=== PATIENT | female | born 1995 | race Caucasian/White ===

== ENCOUNTER 2016-10-05 15:40 | Emergency (ER) | payer OTHER ==
[~2016-10-05 15:40] MED LIST: ADDERALL20 M1 PO; ALBUTEROL17 GM INH; BENZONATATE PO; EFFEXOR75 M3 PO; FLAGYL PO; METAMUCIL PACKE1 PK1; NO MEDICATIONS; PROPRANOLOL HCL20 MG PO; RISPERDAL1 M1 PO; SEROQUEL PO; SOMA PO; VENLAFAXINE HC150 M1 PO; VISTARIL PO; VYVANSE40 MG PO; ZYRTEC10 M2 PO
[2016-10-05] MEDS ORDERED: ZOLOFT (15:46)
[2016-10-05] MEDS ORDERED: REXULTI2 MG (15:46)
[2016-10-05] MEDS ORDERED: ADDERALL (15:46)
== END 2016-10-05 18:25 | disposition home or self-care (01) ==
LOC: SED 15:40
DX: J02.9 Acute pharyngitis, unspecified (principal); B00.1 Herpesviral vesicular dermatitis; F17.200 Nicotine dependence, unspecified, uncomplicated
CPT/HCPCS: 87651; 99283

== ENCOUNTER 2016-10-29 15:31 | Emergency (ER) | payer OTHER ==
[~2016-10-29 15:31] MED LIST changes: +ADDERALL; +REXULTI2 MG; +ZOLOFT
[2016-10-29 15:47] LABS: URINE SOURCE CLEAN CATCH
[2016-10-29 15:50] LABS: URINE APPEARANCE CLEAR; URINE BILIRUBIN NEG (NEG); URINE BLOOD NEG (NEG); URINE COLOR YELLOW; URINE GLUCOSE NEG (NORM); URINE KETONE NEG (NEG); URINE LEUKOCYTE ESTERASE TRACE (NEG); URINE NITRATE NEG (NEG); URINE PROTEIN NEG (NEG); URINE SPECIFIC GRAVITY 1.015 (1.003-1.035); URINE UROBILINOGEN 0.2 MG/DL (NORM)
[2016-10-29 15:58] LABS: CULTURE INDICATED? NO; MICRO INDICATED? YES; URINE BACTERIA NEG (NEG); URINE MUCUS PRESENT; URINE RBC NEG /[HPF] (0-2); URINE SQUAMOUS EPITHELIAL CELL MANY /[HPF]
== END 2016-10-29 16:13 | disposition home or self-care (01) ==
LOC: SED 15:31
PROVIDERS: Physician Assistant Medical
DX: M54.42 Lumbago with sciatica, left side (principal)
CPT/HCPCS: 81003; 84703; 99283

== ENCOUNTER 2016-11-11 22:44 | Emergency (ER) | payer OTHER ==
[~2016-11-11] VITALS: Ht 152.4 cm; Wt 61.2 kg
--- NOTE | ~2016-11-11 | CR63 ---
[facility] [place] A Service of [facility] RADIOLOGY TEXT RESULTS PATIENT: ASHWINI MCWILLIAMS LOCATION: SED : 95 UNIT #: [id number] AGE: [address]: Loretta Good SEX: F ORDER DR: [id number] [address] [address] [id number] E MR#: [id number] Acc #: [id number] NAME: ASHWINI MCWILLIAMS : 1995 SEX: F STUDY DATE/TIME: 11/12/2016 0:45 UNIT: SED ROOM: STUDY DESCRIPTION: CR Chest 2 View Attending Physician: Loretta Good Pa-C Ordering Physician: Staff Doctor Not On Primary Care Physician: Souleymane Valladares M.D. MEDICAL IMAGING REPORT This report is preliminary unless electronic signature is present. EXAM Chest x-ray 11/12/2016 HISTORY 21-year-old female in the ED complaining of 2-day history of cough and shortness of air. Hemoptysis. TECHNIQUE PA and lateral upright chest series. FINDINGS Heart size and pulmonary vascularity are normal. The lungs are clear. No visible pulmonary infiltrate or pleural effusion. Thoracolumbar spinal curvature. No change since 01/05/2016. IMPRESSION Negative chest. No change since 01/05/2016. Dictated by... Nadeem Payne M.D. THIS IS AN ELECTRONICALLY VERIFIED REPORT Nadeem Payne M.D. at 11/12/2016 5:59 AM MARIA EUGENIA/candi TD: 11/12/2016 04:41 JOB #: [id number] MEDICAL IMAGING REPORT Page 1 of 1
[2016-11-11] MEDS ORDERED: ALBUTEROL17 GM (22:59)
[2016-11-11] MEDS ORDERED: LORTAB 5-325 M1 EACH (22:59)
[2016-11-11 23:58] LABS: BASOPHIL# 0.1 X10e3 (0-0.3); EOSINOPHIL# 0.1 X10e3 (0-0.7); EOSINOPHIL% 1.7 % (0.0-7.0); HEMATOCRIT 41.1 % (35.0-45.0); HEMOGLOBIN 13.8 gm/dL (12.0-16.0); LYMPHOCYTE# 1.9 X10e3 (1.0-3.5); LYMPHOCYTE% 25.8 % (17.0-45.0); MEAN CELL VOLUME 87.1 FL (83-96); MEAN CORPUSCULAR HEMOGLOBIN 29.3 PG (28-34); MEAN CORPUSCULAR HGB CONC 33.6 g/dL (30-36); MEAN PLATELET VOLUME 8.5 FL (6.5-11.5); MONOCYTE# 0.8 X10e3 (0-1.0); MONOCYTE% 11.2 % (3.0-12.0); NEUTROPHIL# 4.5 X10e3 (1.5-7.1); NEUTROPHIL% 60.3 % (40-75); PLATELET COUNT 229 X10e3 (140-420); RED BLOOD COUNT 4.72 X10e (3.90-5.30); RED CELL DISTRIBUTION WIDTH 15.2 % (11.0-15.5); WHITE BLOOD COUNT 7.5 X10e3 (4.0-10.5)
[2016-11-12] LABS: DIFF IND NO
[2016-11-12 00:01] LABS: INR 1.1; PROTHROMBIN TIME (PATIENT) 11.9 SECONDS (9.5-12.4)
[2016-11-12 00:08] LABS: ALBUMIN SERUM 4.7 g/dL (3.5-5.0); BILIRUBIN,TOTAL 0.3 mg/dL (0.2-2.0); BUN/CREATININE RATIO 12.85; CALCIUM SERUM 9.1 mg/dL (8.4-10.2); CREATININE SERUM 0.7 mg/dL (0.6-1.4); GLOM FILT RATE Estimated 123.9 mL/min (>60); PARTIAL THROMBOPLASTIN TIME 29.1 SECONDS (25.6-38.1); POTASSIUM 3.4 mmol/L (3.5-5.1); PROTEIN TOTAL SERUM 8.2 g/dL (6.0-8.3)
== END 2016-11-12 01:28 | disposition home or self-care (01) ==
LOC: SED 22:44
PROVIDERS: Physician Assistant
DX: J40 Bronchitis, not specified as acute or chronic (principal); F90.9 Attention-deficit hyperactivity disorder, unspecified type; F31.9 Bipolar disorder, unspecified; F43.10 Post-traumatic stress disorder, unspecified; F20.9 Schizophrenia, unspecified; F17.200 Nicotine dependence, unspecified, uncomplicated; Z98.890 Other specified postprocedural states; Z88.1 Allergy status to other antibiotic agents; Z91.040 Latex allergy status; Z91.018 Allergy to other foods
CPT/HCPCS: 36415; 71020; 80053; 84703; 85025; 85379; 85610; 85730; 99283

== ENCOUNTER 2016-11-20 22:14 | Emergency (ER) | payer OTHER ==
[~2016-11-20] VITALS: Ht 152.4 cm; Wt 61.2 kg
[~2016-11-20 22:14] MED LIST changes: +ALBUTEROL17 GM; +LORTAB 5-325 M1 EACH
== END 2016-11-20 23:47 | disposition home or self-care (01) ==
LOC: CED 22:14
DX: H60.12 Cellulitis of left external ear (principal); F17.210 Nicotine dependence, cigarettes, uncomplicated; F90.9 Attention-deficit hyperactivity disorder, unspecified type; J45.909 Unspecified asthma, uncomplicated; F31.9 Bipolar disorder, unspecified; F20.9 Schizophrenia, unspecified; F43.10 Post-traumatic stress disorder, unspecified; Z88.1 Allergy status to other antibiotic agents; Z91.040 Latex allergy status; Z91.018 Allergy to other foods
CPT/HCPCS: 99282

== ENCOUNTER 2016-11-28 12:56 | Inpatient (IN) | payer OTHER ==
[~2016-11-28] VITALS: Ht 152.4 cm; Wt 70.2 kg
--- NOTE | ~2016-11-28 | HP ---
Unit #: [id number] #: [id number] Patient: ASHWINI MCWILLIAMS [id number] [address] [place], [place] [address] [id number] I MR#: [id number] NAME: ASHWINI MCWILLIAMS ROOM: 36993 Age: 21 Sex: F Admission Date: 11/28/2016 : 1995 Attending Physician: Mora Patrick M.D. Primary Care Physician: Souleymane Valladares M.D. HISTORY AND PHYSICAL CHIEF COMPLAINT Unresponsiveness. HISTORY OF PRESENT ILLNESS The patient is a 21-year-old female who has a history of depression. She came because the patient was unresponsive and could not wake her up. According to the patient's mother, who is sitting by her bedside in the emergency room, she states that the patient deals with depression a lot. She was in [facility] last year when she tried to cut her wrists. She had some kind of problem with her ex-boyfriend and she took 75 tablets of Xanax and 30 tablets of Adderall. The patient was unresponsive and EMS was called and she was brought to the emergency room. The patient is being evaluated in room T6 in the emergency room. The patient is not able to provide any history at this time. Most of the history was taken from the patient's mother, who is at the bedside. Primary care provider is Souleymane Valladares. PAST MEDICAL HISTORY 1. History of depression/bipolar disorder. 2. ADHD. 3. Questionable schizophrenia. 4. History of asthma. PAST SURGICAL HISTORY History of D and C for miscarriage. SOCIAL HISTORY The patient smokes half to one pack per day. No history of alcohol abuse or drug abuse. No history of IV drug abuse. FAMILY HISTORY Not significant. ALLERGIES Nitrofurantoin, amoxicillin, latex, mushroom and onion. HOME MEDICATIONS 1. Xanax 0.5 mg t.i.d. p.r.n. 2. Adderall 30 mg daily. 3. Mobic 15 mg daily. 4. Zoloft 100 mg daily. 5. Keflex 500 mg t.i.d. 6. Ventolin inhaler q.i.d. Unit #: [id number] #: [id number] Patient: ASHWINI MCWILLIAMS REVIEW OF SYSTEMS As per history of present illness. PHYSICAL EXAMINATION GENERAL: The patient is being evaluated in room T6 in the emergency room. VITALS: Stable. Blood pressure 108/64, respiratory rate 19, pulse 67, temperature 98.2, oxygen saturation 98%. HEENT: Head is normocephalic. CHEST: Fair air entry. No additional sounds. HEART: S1 and S2 positive. Regular rhythm. ABDOMEN: Soft. No tenderness. EXTREMITIES: Negative edema. 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 Neurologic examination was limited. DIAGNOSTIC STUDIES LABORATORY: Urinalysis was done, which was normal. Urine drug screen positive for benzodiazepine. BMP shows sodium 138, potassium 4.1, chloride 108, BUN 13, creatinine 0.7. Liver enzymes are stable. ASSESSMENT The patient is being admitted to the telemetry unit with 1. Mental status changes, lethargy. 2. Drug overdose with Xanax and Adderall. 3. Suicidal. 4. History of depression. PLAN Admit to the telemetry unit. Dr. Gallo has been consulted. IV fluids, D5 normal saline at 150 an hour has been started. N.p.o. at this time. Protonix [address] Gallo will be consulted. The patient will be on 72-hour hold. Sitter is at the bedside. Home medication reconciliation has been done. Plan of care has been discussed with mother. Dictated by Princess Daniel TD: 11/28/2016 16:21 JOB #: [id number] HISTORY AND PHYSICAL Page 1 of 1 X Mora Patrick MD HISTORY AND PHYSICAL
--- NOTE | ~2016-11-28 | CO ---
Unit #: [id number] #: [id number] Patient: ASHWINI MCWILLIAMS [id number] [facility] [address] [facility]. [place], [place] [address] [id number] I MR#: [id number] NAME: ASHWINI MCWILLIAMS ROOM: 320 Age: 21 Sex: F Admission Date: 11/28/2016 : 1995 Attending Physician: Mora Patrick M.D. Primary Care Physician: Souleymane Valladares M.D. Consultation Date: 11/29/2016 CONSULTATION REPORT REASON FOR CONSULTATION Overdose. HISTORY OF PRESENT ILLNESS Ms. Busch is a 21-year-old female, seen in room 320, bed 1, on 11/29/2016 at [facility]. The patient is dressed casually, lying comfortably in bed. Somewhat sleepy. The patient has a sitter at the bedside. The patient answered question in short sentences, but reported sad, depressed, suicidal ideation. Recent suicide attempt by taking overdose. Denied any psychotic symptom. Denied any use of any drugs or alcohol. Vital signs; temperature 97.9, pulse 66, respirations 16, blood pressure 120/52, oxygen saturation 99%. The patient's urine drug screen is positive for benzodiazepine. PAST PSYCHIATRIC HISTORY Remarkable for history of depression, history of inpatient treatment at [facility], last treated on 08/20/2016 to 08/24/2016. The patient diagnosed with major depressive disorder, recurrent, severe, generalized anxiety disorder, posttraumatic stress disorder. MEDICAL HISTORY Remarkable for history of asthma. MEDICATIONS The patient is on Xanax 0.5 mg t.i.d., Adderall 30 mg daily, Mobic 15 mg daily, Zoloft 100 mg daily, Keflex 500 mg t.i.d., Ventolin inhaler. ALLERGIES Nitrofurantoin, amoxicillin, latex, mushroom, and onion. FAMILY HISTORY AND SOCIAL HISTORY The patient reported she has a good support system. No history of abuse. No history of any substance abuse. REVIEW OF SYSTEMS Complete review of systems is unremarkable. MENTAL STATUS EXAMINATION Vital signs; 97.9, 66, 16, 120/52, oxygen saturation 99%. General appearance; the patient dressed casually, lying comfortably in bed. Attention span and concentration, fair. Speech, slow in volume. Oriented in place and person. Mood and affect, sad, and depressed. Thought process, coherent. Thought content, the patient denied any homicidal ideation, but suicidal ideation, suicide attempt. Guarded and paranoid. Unit #: [id number] #: [id number] Patient: ASHWINI MCWILLIAMS Recent and remote memory, fair to slightly impaired. Language, fair. Fund of knowledge, fair. Insight and judgment, fair to slightly impaired. DIAGNOSES Psychiatric: Major depressive disorder, recurrent, severe, F33.2. Secondary diagnosis: Deferred. Medical diagnosis: Please refer to H and P. Stressors: Psychosocial stressors. ASSESSMENT AND PLAN 1. Supportive psychotherapy and psychoeducation provided to the patient. 2. Educated about benefits and side effects of medication and course and prognosis of illness. Advised to stop all medication at this time. Recommending the patient to be transferred to [facility] once the patient is medically stable. I advised to continue with the hold and one-to-one sitter. Please feel free to call if any questions, telephone #[phone]. Dictated by... Princess Sheth/neema TD: 11/29/2016 18:36 JOB #: [id number] CONSULTATION REPORT Page 1 of 1 X Woodrow Gallo MD X CONSULTATION REPORT
--- NOTE | ~2016-11-28 | CO ---
Unit #: [id number] #: [id number] Patient: ASHWINI MCWILLIAMS [id number] [address] [place], [place] [address] [id number] I MR#: [id number] NAME: ASHWINI MCWILLIAMS ROOM: [facility] Age: 21 Sex: F Admission Date: 11/28/2016 : 1995 Attending Physician: Mora Patrick M.D. Primary Care Physician: Souleymane Valladares M.D. Consultation Date: 11/30/2016 CONSULTATION REPORT DISCUSSION Ms. Solis is a 21-year-old female, seen on 11/30/2016. The patient has a sitter, lying comfortably in bed. The patient reports that she is not suicidal and does not need to go to the hospital. The patient had a suicide attempt by taking overdose. The patient has a previous suicide attempt by cutting her arm, has multiple horne on her right side on her arm. The patient's mood was labile. Vital signs; temperature 98.5, pulse 85, respirations 18, blood pressure 107/51, and oxygen saturation 99%. REVIEW OF SYSTEMS Complete review of systems unremarkable. MENTAL STATUS EXAMINATION General appearance; the patient dressed casually. Attention span and concentration, fair. Speech, regular rate. Oriented in time, place, and person. Mood and affect, labile. Thought process, coherent. Thought content, the patient denied any thoughts of harming self or others, but recent suicide attempt. Mood was irritable. Recent and remote memory, fair. Language, intact. Fund of knowledge, fair. Insight and judgment, fair to poor. DIAGNOSES Psychiatric: Major depressive disorder, recurrent, severe, F33.2. ASSESSMENT/PLAN 1. Supportive psychotherapy and psychoeducation provided to the patient. 2. Educated about benefits and side effects of medication and course and prognosis of illness. 3. Recommending the patient to be transferred to [facility] after the patient is medically cleared for psychiatric stabilization. Please feel free to call if any questions, telephone #[phone]. Dictated by... Woodrow Gallo M.D. LINNETTE/neema TD: 12/01/2016 00:04 JOB #: [id number] Unit #: [id number] #: [id number] Patient: ASHWINI MCWILLIAMS CONSULTATION REPORT Page 1 of 1 X Woodrow Gallo MD CONSULTATION REPORT
[2016-11-28 14:02] LABS: URINE SOURCE CLEAN CATCH
[2016-11-28 14:11] LABS: URINE APPEARANCE CLEAR; URINE BILIRUBIN NEG (NEG); URINE BLOOD NEG (NEG); URINE COLOR YELLOW; URINE GLUCOSE NEG (NEG); URINE KETONE NEG (NEG); URINE LEUKOCYTE ESTERASE NEG (NEG); URINE NITRATE NEG (NEG); URINE PH 6.5 (5-8); URINE PROTEIN NEG (NEG); URINE SPECIFIC GRAVITY 1.011 (1.003-1.035); URINE UROBILINOGEN 0.2 MG/DL (NEG)
[2016-11-28 14:16] LABS: CULTURE INDICATED? NO
[2016-11-28 14:20] LABS: AMPHETAMINE NEG (NEG); BARBITURATES NEG (NEG); BENZODIAZEPINES POS (NEG); COCAINE NEG (NEG); MARIJUANA NEG (NEG); OPIATES NEG (NEG); TRICYCLIC ANTIDEPRESSANTS NEG (NEG); U METHADONE NEG (NEG)
[2016-11-28 14:33] LABS: ALBUMIN SERUM 4.1 g/dL (3.5-5.0); ALKALINE PHOSPHATASE 52 U/L (32-92); ALT (SGPT) 20 U/L (10-40); AST (SGOT) 24 U/L (10-42); BILIRUBIN, DIRECT 0.1 mg/dL (0.0-0.2); BILIRUBIN,INDIRECT 0.2 mg/dL (0.0-0.9); BILIRUBIN,TOTAL 0.3 mg/dL (0.2-2.0); BLOOD UREA NITROGEN 13 mg/dL (9-23); BUN/CREATININE RATIO 18.57; CALCIUM SERUM 8.8 mg/dL (8.4-10.2); CARBON DIOXIDE 23 mmol/L (22-31); CHLORIDE 108 mmol/L (100-111); CREATININE SERUM 0.7 mg/dL (0.6-1.4); GLOM FILT RATE Estimated 123.9 mL/min (>60); GLUCOSE FASTING 82 mg/dL (70-110); POTASSIUM 4.1 mmol/L (3.5-5.1); SALICYLATE <4.0 mg/dL; SODIUM 138 mmol/L (135-145)
[2016-11-28 14:35] LABS: ACETAMINOPHEN <10 ug/mL; ALCOHOL BLOOD <5 mg/dL (0)
[2016-11-28] MEDS ORDERED: PATIENT'S PHARMACY (15:23)
[2016-11-28] MEDS ORDERED: ALPRAZOLAM XR0.5 MG PO (15:23)
[2016-11-28] MEDS ORDERED: MOBIC PO (15:24)
[2016-11-28] MEDS ORDERED: ADDERALL PO (15:24)
[2016-11-28] MEDS ORDERED: BACTRIM DS TAB1 EACH PO (15:24)
[2016-11-28] MEDS ORDERED: KEFLEX500 M1 PO (15:24)
[2016-11-28] MEDS ORDERED: ZOLOFT PO (15:24)
[2016-11-28] MEDS ORDERED: ALBUTEROL17 GM INH (15:25)
[2016-11-28] MEDS ORDERED: REXULTI2 MG PO (17:22)
[2016-11-29 11:55] LABS: HEMATOCRIT 37.4 % (35.0-45.0); HEMOGLOBIN 12.3 gm/dL (12.0-16.0); MEAN CORPUSCULAR HEMOGLOBIN 28.9 PG (28-34); MEAN CORPUSCULAR HGB CONC 32.8 g/dL (30-36); MEAN PLATELET VOLUME 8.3 FL (6.5-11.5); RED BLOOD COUNT 4.24 X10e (3.90-5.30); RED CELL DISTRIBUTION WIDTH 15.3 % (11.0-15.5); WHITE BLOOD COUNT 5.5 X10e3 (4.0-10.5)
== END 2016-11-30 15:14 | DRG 917 ==
LOC: CED 12:56 → CEDOF 15:15 → C3A PCU 15:15 → CEDOF 15:43 → CED 15:43 → C3A PCU 11-29 02:08 → CEDOF 11-29 02:08 → C3A PCU 11-29 02:08
PROVIDERS: Emergency Medicine; Physician Assistant Medical
DX: T42.4X2A Poisoning by benzodiazepines, intentional self-harm, initial encounter (principal); G92 Toxic encephalopathy; F33.2 Major depressive disorder, recurrent severe without psychotic features; Y92.9 Unspecified place or not applicable; F90.9 Attention-deficit hyperactivity disorder, unspecified type; F17.200 Nicotine dependence, unspecified, uncomplicated; R41.82 Altered mental status, unspecified; Z88.8 Allergy status to other drugs, medicaments and biological substances; Z91.040 Latex allergy status; Z88.1 Allergy status to other antibiotic agents; Z91.018 Allergy to other foods
CPT/HCPCS: 36415; 80048; 80076; 80307; 81003; 85027; 94760; 99285; C9113; G0480

== ENCOUNTER 2016-11-30 12:00 | Inpatient (IN) | payer OTHER ==
[~2016-11-30] VITALS: Ht 154.9 cm; Wt 70.3 kg
--- NOTE | ~2016-11-30 | PN ---
Unit #: [id number] #: [id number] Patient: ASHWINI MARINO [id number] [facility] [address] [place] [address] [id number] MR#: [id number] NAME: ASHWINI MARINO ROOM: P207 Age: 21 Sex: F Admission Date: 11/30/2016 : 1995 Attending Physician: Pete Simpson M.D. Admitting Physician: Pete Simpson M.D. Primary Care Physician: Princess Peralta PROGRESS NOTES DATE OF SERVICE 12/02/2016 DISCUSSION Ms. Marino is a 21-year-old white female who was seen today. Chart was reviewed and case was discussed with the staff. She has been anxious, withdrawn, and rather seclusive to herself but has been cooperative and doing better than yesterday on her attitude and behavior. He does appear to be rather calm and showing improvement in her depressive symptoms. MENTAL STATUS EXAMINATION Young white female who is casually dressed with fair personal hygiene, appears to be in no acute distress or discomfort. She was awake and alert on interaction with intact orientation. Her mood is anxious and depressed with congruent affect. Her speech is slow and goal-directed. She denies any suicidal or homicidal ideations and also denies any auditory or visual hallucinations. Her insight and judgment remain slightly impaired. TREATMENT PLAN 1. We will continue her on her current medications and treatment protocol. We will monitor her response to the medications and make further adjustments as needed. 2. We will continue to follow up. Dictated by... Princess Buck/wing TD: 12/02/2016 12:42 JOB #: [id number] Unit #: [id number] #: [id number] Patient: ASHWINI MARINO PROGRESS NOTES Page 1 of 1 X Pete Simpson MD PROGRESS NOTE
--- NOTE | ~2016-11-30 | DS ---
Unit #: [id number] #: [id number] Patient: ASHWINI MARINO [id number] [facility] [address] [place] [address] [id number] I MR#: [id number] NAME: ASHWINI MARINO ROOM: P207 Age: 21 Sex: F Admission Date: 11/30/2016 : 1995 Discharge Date: 12/03/2016 Attending Physician: Pete Simpson M.D. Primary Care Physician: Souleymane Valladares M.D. DISCHARGE SUMMARY IDENTIFYING DATA Ms. Marino is a 21-year-old single white female who is a resident of [place], [place] and was transferred to us from [facility] on a 72-hours hold. DISCHARGE DIAGNOSIS PSYCHIATRIC: Major depressive disorder, recurrent, moderate, without psychotic features. MEDICAL: 1. Scoliosis. 2. Seizure disorder. STRESSORS: Mild psychosocial stressors. HISTORY OF PRESENT ILLNESS Please see initial psychiatric evaluation. PAST PSYCHIATRIC HISTORY Please see initial psychiatric evaluation. PAST MEDICAL HISTORY Please see initial psychiatric evaluation. HOSPITAL COURSE The patient [facility] and was oriented to the hospital environment. Routine p.r.n. medications were initiated and she was started back on her home medications and medications were maintained and she was closely monitored. She was taking the medications regularly and was tolerating them fairly well and was able to show a recent therapeutic response as well as was willing to continue treatment on outpatient basis and once the 72-hour hold , she refused to stay in the treatment any longer and as such it was decided that she will be discharged home and will continue treatment on outpatient basis. DIAGNOSIS MEDICATIONS 1. Proventil inhaler 2 puffs every four hours as needed for asthma. 2. Singular 10 mg a day for allergies. 3. Symbicort 2 puffs twice a day for asthma. Unit #: [id number] #: [id number] Patient: ASHWINI MARINO 4. Wellbutrin SR 150 mg twice a day for depression. 5. Mobic 15 mg a day for pain. 6. Zoloft 100 mg a day for depression. 7. Rexulti 2 mg at bedtime for depression. 8. Neurontin 100 mg twice a day for depression. DISCHARGE CONDITION Stable. PROGNOSIS Fair. Dictated by... Princess Buck/chema TD: 12/03/2016 22:52 JOB #: [id number] DISCHARGE SUMMARY Page 1 of 1 X Pete Simpson MD X DISCHARGE SUMMARY
--- NOTE | ~2016-11-30 | PN ---
Unit #: [id number] #: [id number] Patient: ASHWINI MARINO [id number] [facility] [address] [place] [address] [id number] I MR#: [id number] NAME: ASHWINI MARINO ROOM: P207 Age: 21 Sex: F Admission Date: 11/30/2016 : 1995 Attending Physician: Pete Simpson M.D. Admitting Physician: Pete Simpson M.D. Primary Care Physician: Princess Peralta PROGRESS NOTES DATE 12/01/2016 DISCUSSION Ms. Marino is a 21-year-old white female with mood disorder who was seen today and chart was reviewed and case was discussed with the staff. She has been anxious, withdrawn and rather seclusive to herself and has been reporting persistent depressive symptoms but at the same time has been showing very poor insight and poor motivation towards treatment and has been wanting to leave against medical advice. MENTAL STATUS EXAMINATION Young white female who was casually dressed with fair personal hygiene and appears to be in no acute distress or discomfort. She was awake and alert on interaction with intact orientation. Her mood was anxious with congruent affect. Her speech is slow and goal-directed. She denies any current suicidal or homicidal ideations. Her insight and judgement remains slightly impaired. TREATMENT PLAN 1. Will continue on current medications and treatment protocol. Will monitor her response to the medications and make further adjustments as needed. 2. Will continue to follow up. Dictated by... Princess Buck/ernst TD: 12/01/2016 21:33 JOB #: [id number] Unit #: [id number] #: [id number] Patient: ASHWINI MARINO PROGRESS NOTES Page 1 of 1 X Pete Simpson MD X PROGRESS NOTE
--- NOTE | ~2016-11-30 | HP ---
Unit #: [id number] #: [id number] Patient: IRMA MCWILLIAMS [id number] [place] [address] [id number] I MR#: [id number] NAME: IRMA MCWILLIAMS ROOM: P207 Age: 21 Sex: F Admission Date: 11/30/2016 : 1995 Attending Physician: Pete Simpson M.D. Admitting Physician: Pete Simpson M.D. Primary Care Physician: Souleymane Valladares M.D. HISTORY AND PHYSICAL HISTORY OF PRESENT ILLNESS Irma is a 21 year old admitted to [address] [place] [address] with depression and after an overdose of benzodiazepines. She was admitted to [facility] on 11/28/2016 and when medically stable discharged and transferred to [facility] for psychiatric care. Patient was seen and H & P dated 11/28/2016 was reviewed. This is current. No changes except she has developed a dry red rash behind both of her ears. She tells me that has an allergy to Latex and she has been wearing gages that are rubberized in both of her ears for many weeks. We will start her on hydrocortisone cream 2.5 mg b.i.d. times seven days. DC Keflex that was prescribed in the emergency room. This does not appear to be a cellulitis but is more of a contact dermatitis. Please see H & P from [facility] dated 11/28/2016. Dictated by... Celestina Whitmore P.A.-C. for Princess Levine/chema TD: 11/30/2016 23:03 JOB #: [id number] HISTORY AND PHYSICAL Page 1 of 1 X Celestina Whitmore HISTORY AND PHYSICAL
--- NOTE | ~2016-11-30 | PA ---
Unit #: [id number] #: [id number] Patient: ASHWINI MARINO [id number] [facility] [address] [place] [address] [id number] I MR#: [id number] NAME: ASHWINI MARINO ROOM: P207 Age: 21 Sex: F Admission Date: 11/30/2016 : 1995 Date of Assessment: 11/30/2016 Attending Physician: Pete Simpson M.D. Admitting Physician: Pete Simpson M.D. Primary Care Physician: Souleymane Valladares M.D. PSYCHIATRIC ASSESSMENT DATE OF SERVICE 11/30/2016. IDENTIFYING DATA Ms. Marino is a 21-year-old, single, white female, who is a resident of [place], [place], and was transferred to us from [facility] on a 72 hours hold after she was brought to the hospital emergency room via EMS. CHIEF COMPLAINT "I don't remember, I was out of it." HISTORY OF PRESENT ILLNESS Ms. Marino is a 21-year-old white female, who was taken to the [facility] via hospital emergency room with impaired level of consciousness and the patient stated that she does not remember some things because "I was out of it" and the patient reports that she remembers talking to her ex-boyfriend who was saying very bad things to her and she reports that he was taunting her about her recent miscarriage and the of her grandfather. The patient reports that he got it about how much disappointment she was and the patient reports that she has not been taking her medication for 3 days prior to the incident and that she decided "I just wanted to end my life." The patient reports she then took 2 handfuls of Xanax and Adderall and reports that she has been diagnosed with ovarian cancer, though diagnostic workup has not been done; however, she does admit to overdosing on Xanax and Adderall in a suicide attempt and it is not clear who is the provider for those medications as I do not have a definitive listed outpatient psychiatrist. However, the patient was seen to be a significant danger to self and therefore, recommendation for inpatient level of care for safety and stabilization was made and the patient was stepped up to the inpatient unit. SUBSTANCE ABUSE HISTORY The patient denies any alcohol or drug abuse. PAST PSYCHIATRIC HISTORY The patient has had a history of inpatient psychiatric hospitalization at [facility] under my care in 08/2015 and review of the medical records indicate that currently she is on Zoloft and Mobic and has also been reportedly getting prescriptions of Xanax and Adderall, but has been noncompliant with the medications; however, feeling that she is seeing a psychiatrist on an outpatient basis as she is on a combination of antidepressant along with Rexulti as an augmenting agent. Unit #: [id number] #: [id number] Patient: ASHWINI MARINO PAST MEDICAL HISTORY The patient reports that she has a history of scoliosis, seizures, hypothyroidism, asthma and that she was also told that she has ovarian cancer, but definitive diagnostic workup has not been done. ALLERGIES Macrobid and latex. PERSONAL AND SOCIAL HISTORY A 21-year-old white female, who reports that she lives at home with her boyfriend and has poor social support system. MENTAL STATUS EXAMINATION Young white female, who was casually dressed with fair personal hygiene, appears to be in no acute distress or discomfort. She was awake and alert on interaction with intact orientation to time, place, and person. Her mood was anxious and depressed with a congruent affect. Her speech was slow and goal directed. She reports having suicidal ideations, but denies any homicidal ideations, and also denies any auditory or visual hallucinations. Her insight and judgment remain significantly impaired. DIAGNOSTIC IMPRESSION Psychiatric: Major depressive disorder, recurrent, moderate, without psychotic features. Medical: Asthma, scoliosis, seizure disorder, hypothyroidism. Stressors: Moderate psychosocial stressors. TREATMENT PLAN 1. The patient has presented with a history of mood disorder, and has been decompensating and will need inpatient hospitalization for safety and stabilization. We will start her back on her home medications. We will adjust the medications and monitor response. 2. Supportive therapy was provided to the patient. 3. Safe, structured, and nourishing environment will be provided. ESTIMATED LENGTH OF STAY 4 to 5 days. ABILITY TO HELP SELF Limited. WILLINGNESS TO HELP SELF The patient appears to be willing to help self. STRENGTHS 1. Communicative. 2. Cooperative. PROBLEMS 1. Chronic dysphoric symptoms. 2. Poor social support system. DISCHARGE CRITERIA This will be contingent upon the patient's ability to show resolution of her depression and anxiety and her ability to stay safe to herself, Unit #: [id number] #: [id number] Patient: ASHWINI MARINO particularly after discharge from the hospital. Dictated by... Princess Buck/neema TD: 12/01/2016 07:27 JOB #: [id number] PSYCHIATRIC ASSESSMENT Page 1 of 1 X Pete Simpson MD X PSYCHIATRIC ASSESSMENT
[~2016-11-30 12:00] MED LIST changes: +ADDERALL PO; +ALPRAZOLAM XR0.5 MG PO; +BACTRIM DS TAB1 EACH PO; +KEFLEX500 M1 PO; +MOBIC PO; +PATIENT'S PHARMACY; +REXULTI2 MG PO; +ZOLOFT PO
[2016-12-01 12:36] LABS: BASOPHIL# 0.1 X10e3 (0-0.3); EOSINOPHIL# 0.3 X10e3 (0-0.7); EOSINOPHIL% 3.9 % (0.0-7.0); HEMOGLOBIN 12.7 gm/dL (12.0-16.0); LYMPHOCYTE# 1.2 X10e3 (1.0-3.5); LYMPHOCYTE% 18.7 % (17.0-45.0); MEAN CELL VOLUME 87.1 FL (83-96); MEAN CORPUSCULAR HEMOGLOBIN 29.1 PG (28-34); MEAN CORPUSCULAR HGB CONC 33.5 g/dL (30-36); MEAN PLATELET VOLUME 8.5 FL (6.5-11.5); MONOCYTE# 0.5 X10e3 (0-1.0); MONOCYTE% 7.5 % (3.0-12.0); NEUTROPHIL# 4.5 X10e3 (1.5-7.1); NEUTROPHIL% 68.9 % (40-75); PLATELET COUNT 205 X10e3 (140-420); RED BLOOD COUNT 4.36 X10e (3.90-5.30); RED CELL DISTRIBUTION WIDTH 14.7 % (11.0-15.5); WHITE BLOOD COUNT 6.6 X10e3 (4.0-10.5)
[2016-12-01 12:38] LABS: DIFF IND NO
[2016-12-01 12:39] LABS: ALBUMIN SERUM 4.1 g/dL (3.5-5.0); BILIRUBIN,TOTAL 0.7 mg/dL (0.2-2.0); CALCIUM SERUM 8.8 mg/dL (8.4-10.2); CREATININE SERUM 0.7 mg/dL (0.6-1.4); GLOM FILT RATE Estimated 123.9 mL/min (>60); PROTEIN TOTAL SERUM 6.6 g/dL (6.0-8.3)
[2016-12-02 10:13] LABS: URINE APPEARANCE CLOUDY; URINE BILIRUBIN NEG (NEG); URINE BLOOD NEG (NEG); URINE COLOR YELLOW; URINE GLUCOSE NEG (NEG); URINE KETONE NEG (NEG); URINE LEUKOCYTE ESTERASE 2+ (NEG); URINE NITRATE NEG (NEG); URINE PH 6.5 (5-8); URINE PROTEIN NEG (NEG); URINE SPECIFIC GRAVITY 1.017 (1.003-1.035); URINE UROBILINOGEN 0.2 MG/DL (NEG)
[2016-12-02 10:17] LABS: URBCS1 AUWI 0-2 /[HPF] (0-2); URINE BACTERIA AUWI 3+ (NEGATIVE); URINE SQUAMOUS EPITHELIAL CELL MANY /[HPF]
[2016-12-02 10:44] LABS: U HYALINE CASTS AUWI 0-2 /[LPF]
[2016-12-02 10:45] LABS: URINE MUCUS PRESENT; URINE YEAST PRESENT
[2016-12-02 10:59] LABS: AMPHETAMINE NEG (NEG); BARBITURATES NEG (NEG); BENZODIAZEPINES POS (NEG); COCAINE NEG (NEG); MARIJUANA NEG (NEG); OPIATES NEG (NEG); TRICYCLIC ANTIDEPRESSANTS NEG (NEG); U METHADONE NEG (NEG)
== END 2016-12-03 10:45 | disposition home or self-care (01) | DRG 885 ==
LOC: P2S 15:37
PROVIDERS: Psychiatry & Neurology Psychiatry
DX: F33.1 Major depressive disorder, recurrent, moderate (principal); M41.9 Scoliosis, unspecified; J45.909 Unspecified asthma, uncomplicated; G40.909 Epilepsy, unspecified, not intractable, without status epilepticus; E03.9 Hypothyroidism, unspecified
CPT/HCPCS: 80053; 80307; 81003; 85025

== ENCOUNTER 2016-12-18 23:40 | Emergency (ER) | payer OTHER ==
[~2016-12-18] VITALS: Ht 152.4 cm; Wt 68.0 kg
[2016-12-18] MEDS ORDERED: NEURONTIN (23:57)
[2016-12-18] MEDS ORDERED: ADDERALL (23:57)
[2016-12-18] MEDS ORDERED: WELLBUTRIN (23:57)
[2016-12-18] MEDS ORDERED: ZOLOFT (23:57)
== END 2016-12-19 00:20 | disposition home or self-care (01) ==
LOC: SED 23:40
DX: T78.49XA Other allergy, initial encounter (principal); F31.9 Bipolar disorder, unspecified; J45.909 Unspecified asthma, uncomplicated; F17.200 Nicotine dependence, unspecified, uncomplicated; Z88.1 Allergy status to other antibiotic agents; Z91.040 Latex allergy status
CPT/HCPCS: 99282

== ENCOUNTER 2016-12-25 16:32 | Emergency (ER) | payer OTHER ==
[~2016-12-25] VITALS: Ht 152.4 cm; Wt 68.0 kg
--- NOTE | ~2016-12-25 | CR230 ---
[facility] A Service of [facility] RADIOLOGY TEXT RESULTS PATIENT: ASHWINI MCWILLIAMS LOCATION: SED : 95 UNIT #: [id number] AGE: [address]: AUGUSTO WARNER SEX: F ORDER DR: [id number] [address] [address] [id number] E MR#: [id number] Acc #: [id number] NAME: ASHWINI MCWILLIAMS : 1995 SEX: F STUDY DATE/TIME: 12/25/2016 18:02 UNIT: SED ROOM: STUDY DESCRIPTION: CR Shoulder Min 2 View Rt Attending Physician: Augusto Warner A.P.R.N. Ordering Physician: Augusto Warner A.P.R.N. Primary Care Physician: Souleymane Valladares M.D. MEDICAL IMAGING REPORT This report is preliminary unless electronic signature is present. EXAM Right shoulder, 3 views HISTORY Shoulder pain after injury today. FINDINGS Three views of the right shoulder demonstrate normal bone alignment. No fracture, joint space narrowing or dislocation. Incidental developmental os acromiale. Normal mineralization. Mild mid-right thoracic curve. IMPRESSION No acute finding. Dictated by... Shree Centeno M.D. THIS IS AN ELECTRONICALLY VERIFIED REPORT Shree Centeno M.D. at 12/26/2016 3:30 PM DFL/psc TD: 12/26/2016 10:45 JOB #: [id number] MEDICAL IMAGING REPORT Page 1 of 1
[~2016-12-25 16:32] MED LIST changes: +NEURONTIN; +WELLBUTRIN
== END 2016-12-25 19:14 | disposition home or self-care (01) ==
LOC: SED 16:32
DX: S46.911A Strain of unspecified muscle, fascia and tendon at shoulder and upper arm level, right arm, initial encounter (principal); J45.909 Unspecified asthma, uncomplicated; F17.200 Nicotine dependence, unspecified, uncomplicated; Z88.0 Allergy status to penicillin; Z88.1 Allergy status to other antibiotic agents; Z91.018 Allergy to other foods; Z91.040 Latex allergy status; Z79.899 Other long term (current) drug therapy; X58.XXXA Exposure to other specified factors, initial encounter
CPT/HCPCS: 73030; 96372; 99283; J1885